=== PATIENT | female | born 1995 | race Caucasian/White ===

== ENCOUNTER 2016-04-08 17:33 | Emergency (ER) | payer OTHER ==
[~2016-04-08] VITALS: Ht 162.6 cm; Wt 64.0 kg
[2016-04-08 17:37] VITALS: TEMP 36.9; Ht 162.6 cm; Wt 64.0 kg
[2016-04-08] MEDS ORDERED: BCPILLS PO (17:51)
[2016-04-08] MEDS ORDERED: ACETAMINOPHEN 500 MG TAB PO STA (18:28)
[2016-04-08] MEDS ORDERED: XYLOCAINE 1%/SOD BICARB 20 ML VIAL INFIL ONE (18:30)
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
[2016-04-08] MEDS ORDERED: IBUPROFEN 600 MG TAB ONE (19:34)
[2016-04-08] MEDS ORDERED: CEPH500C PO (20:09)
[2016-04-08] MEDS ORDERED: CEPHALEXIN 500MG HOME PACK 1 EA BTL PO ONE (20:15)
[2016-04-08 20:37] VITALS: BP 132/91; PULSE 90; O2SAT 97
== END 2016-04-08 20:39 | disposition home or self-care (01) ==
LOC: EDBD 17:36 → C.EDD 17:36
DX: S01.81XA Laceration without foreign body of other part of head, initial encounter (principal); S60.221A Contusion of right hand, initial encounter; S00.83XA Contusion of other part of head, initial encounter; S09.90XA Unspecified injury of head, initial encounter; V13.4XXA Pedal cycle driver injured in collision with car, pick-up truck or van in traffic accident, initial encounter